=== PATIENT | male | born 1970 | race Caucasian/White ===

== ENCOUNTER 2019-04-18 19:31 | Emergency (ER) | payer SELFPAY ==
[~2019-04-18] VITALS: Ht 175.3 cm; Wt 78.5 kg
[2019-04-18 19:33] VITALS: Ht 175.3 cm; Wt 78.5 kg
--- NOTE | 2019-04-18 21:25 | ERD ---
ER Documentation Chief Complaint Chief Complaint generalized rash x5 days w/ low grade fever HPI Patient is a 48 years old male with no known PMHx presenting to the clinic for diffuse body rash x 5 days ago. Patient reports rash came about suddenly and is pruritic and has been getting worse. Patient went to an urgent care yesterday and was given Cephelexin and Hydroxizine. Patient states that he has taken the medication for 1 day and did not have improvement. Patient admits to pruritus and denies pain. Patient also admits to low grade fever without chills or night sweats. Patient report rash initially started on his forearm and has spread to the rest of the body. ROS All systems reviewed and are negative except as per history of present illness. Medications Home Meds Active Scripts Diphenhydramine Hcl* (Benadryl*) 25 Mg Cap, 25 MG PO Q6H PRN for ITCHING for 7 Days, CAP Prov:CHRISTY GARCIA PA-C 04/18/19 Hydrocortisone* Topical (Hydrocortisone* Topical) 2.5%-28.3 Gm Cream..g., 1 APPLIC TOP BID, #2 TUB Prov:CHRISTY GARCIA PA-C 04/18/19 Allergies Allergies: Coded Allergies: No Known Allergy (Unverified , 04/18/19) PMhx/Soc History of Surgery: No Anesthesia Reaction: No Hx Neurological Disorder: No Hx Respiratory Disorders: No Hx Cardiac Disorders: No Hx Psychiatric Problems: No Hx Miscellaneous Medical Probl: No FmHx Family History: No diabetes, No coronary disease, No other Physical Exam Vitals Vital Signs Date Temp Pulse Resp B/P (MAP) Pulse Ox O2 O2 Flow FiO2 Time Delivery Rate 04/18/19 100.2 99 16 133/76 97 19:33 (95) Physical Exam Const: No acute distress Head: Atraumatic Eyes: Normal Conjunctiva Resp: Clear to auscultation bilaterally Cardio: Regular rate and rhythm, no murmurs Abd: Soft, non tender, non distended. Normal bowel sounds Skin: Multiple Macular rash over bilateral upper & lower extremity, neck, torso. Back: No midline or flank tenderness Ext: No cyanosis, or edema Neur: Awake and alert Psych: Normal Mood and Affect Results 24 hrs Current Medications Medications Dose Sig/George Start Time Status Last (Trade) Ordered Route PRN Stop Time Admin Dose Reason Admin 10 mg ONCE ONCE 04/18/19 DC 04/18/19 Dexamethasone IM 21:30 21:34 (Decadron) 04/18/19 21:31 Procedures/MDM Patient was seen and evaluated for rash. Symptoms most likely represents viral exanthem vs dermatitis. Patient was given Dexamethasone 10mg IM with improvement in symptoms. Patient is stable and ready for discharge. Patient was advised to f/u with PCP for dermatology evaluation. Patient was advised to avoid scratching rash. Departure Diagnosis: Primary Impression: Rash Condition: Stable Patient Instructions: Self-Care for Skin Rashes Referrals: [facility] Additional Instructions: Paciente aconseja volver a Departamento de urgencias inmediatamente para sntomas nuevos o que empeoran . Paciente aconseja posteriores con el PCP en 2-3 patel . Paciente verbaliza la comprehensin y est de acuerdo con el tratamiento y el curso de accin. Si el paciente no tiene ninguna de atencin primaria pueden seguir con [facility] [address] [place] [address] o [facility] + [address] [address] CHRISTY GARCIA PA-C Apr 18, 2019 21:25
[2019-04-18] MEDS ORDERED: DEXAMETHASONE 10 MG/ML 1 ML INJ IM ONE (21:30)
[2019-04-18] MEDS ORDERED: HC30CR25 TOP (21:36)
[2019-04-18] MEDS ORDERED: BEN25 PO (21:37)
[2019-04-18 21:45] VITALS: BP 129/82; PULSE 85; RESP 18
== END 2019-04-18 21:48 | disposition home or self-care (01) ==
LOC: FTE 19:31
DX: R21 Rash and other nonspecific skin eruption (principal)
CPT/HCPCS: 96372; 99284; J1100

== ENCOUNTER 2019-04-21 19:05 | Emergency (ER) | payer SELFPAY ==
[~2019-04-21] VITALS: Ht 172.7 cm; Wt 78.0 kg
[~2019-04-21 19:05] MED LIST: BEN25 PO; HC30CR25 TOP
[2019-04-21 19:11] VITALS: Ht 172.7 cm; Wt 78.0 kg
[2019-04-21] MEDS ORDERED: MED4DP PO (20:26)
[2019-04-21] MEDS ORDERED: FAMO-96 PO ×3 (20:26→21:30)
[2019-04-21] MEDS ORDERED: TRIA15CR55 TOP (20:27)
[2019-04-21] MEDS ORDERED: METHYLPREDNISOLONE 125 MG INJ IM ONE (20:30)
[2019-04-21] MEDS ORDERED: DIPHENHYDRAMINE 25 MG CAP PO ONE (20:30)
[2019-04-21] MEDS ORDERED: FAMOTIDINE 20 MG TAB PO ONE (20:30)
[2019-04-21] MEDS ORDERED: METHYLPREDNISOLONE 125 MG INJ IV ONE (20:30)
--- NOTE | 2019-04-21 20:32 | ERD ---
ER Documentation Chief Complaint Chief Complaint generalize body rash x2 weeks, was here few days ago for same HPI 48-year-old male presents to ED for evaluation of rash x8 days. Patient p resents to ED 3 days previously and was told to have dermatitis was given IM injection Decadron and prescribed Benadryl, hydroxyzine, and hydrocortisone ointment. Patient notes no improvement in symptoms and notes rash is now spread from the abdomen to the back and now the bilateral upper and lower extremities. Patient notes rash is extremely itchy preventing him from sleeping at night. Denies previous episodes of similar rashes, no known medical history, no known allergies. Patient denies shortness of breath, lip swelling, tongue swelling, fevers, chills. ROS All systems reviewed and are negative except as per history of present illness. Medications Home Meds Active Scripts Famotidine* (Pepcid*) 20 Mg Tablet, 40 MG PO BID for 6 Days, #12 TAB Prov:KRYSTEN GREEN PA-C 04/21/19 Triamcinolone Acetonide (Triamcinolone Acetonide) 0.1% - 15 Gm Cream.gm., 1 APPLIC TOP BID, #30 GM 1 Refill Prov:KRYSTEN GREEN PA-C 04/21/19 Methylprednisolone* (Medrol* DOSE PACK) 4 Mg/Dose-Pack Tab.ds.pk, 4 MG PO . DIRECTED, #1 PACKET Prov:KRYSTEN GREEN PA-C 04/21/19 Diphenhydramine Hcl* (Benadryl*) 25 Mg Cap, 25 MG PO Q6H PRN for ITCHING for 7 Days, CAP Prov:CHRISTY GARCIA PA-C 04/18/19 Hydrocortisone* Topical (Hydrocortisone* Topical) 2.5%-28.3 Gm Cream..g., 1 APPLIC TOP BID, #2 TUB Prov:CHRISTY GARCIA PA-C 04/18/19 Discontinued Scripts Famotidine* (Pepcid*) 20 Mg Tablet, 40 MG PO BID for 12 Days, TAB Prov:KRYSTEN GREEN PA-C 04/21/19 Famotidine* (Pepcid*) 20 Mg Tablet, 40 MG PO BID for rash for 6 Days, #10 TAB Prov:KRYSTEN GREEN PA-C 04/21/19 Allergies Allergies: Coded Allergies: No Known Allergy (Unverified , 04/18/19) PMhx/Soc Medical and Surgical Hx: pt denies Medical Hx, pt denies Surgical Hx History of Surgery: No Anesthesia Reaction: No Hx Neurological Disorder: No Hx Respiratory Disorders: No Hx Cardiac Disorders: No Hx Psychiatric Problems: No Hx Miscellaneous Medical Probl: No Hx Alcohol Use: No Hx Substance Use: No Hx Tobacco Use: No Smoking Status: Never smoker Physical Exam Vitals Vital Signs Date Temp Pulse Resp B/P (MAP) Pulse Ox O2 O2 Flow FiO2 Time Delivery Rate 04/21/19 98.0 78 16 120/80 98 Room Air 21:24 (93) 04/21/19 99.2 104 20 140/66 99 19:11 (90) Physical Exam Constitutional: Well developed. Well nourished. No acute distress Head/Eyes: Atraumatic. Normocephalic. PERRL. EOMI. No periorbital edema ENT: Moist mucous membranes. Voice normal. No angioedema, no tongue swelling. Neck: Supple. No lymphadenopathy Cardiovascular: Regular rate and rhythm. No murmurs, rubs, or gallops. Distal pulses intact Respiratory: No respiratory distress. Normal breath sounds. No wheezes, rales, or rhonchi. Speaking full sentences. Abdominal: Soft. Non-tender. No guarding, rebound, or rigidity. Non-distended. Extremities: No edema, Full ROM Skin: Dry. Warm. Diffuse blanching erythematous macular rash to the abdomen back and bilateral upper and lower extremities. No warmth, edema, tenderness to palpation. No discharge. No fasciculations or bullae. Neurological: Alert and oriented X 3. Normal speech Psychiatric: Normal mood. Normal affect Results 24 hrs Current Medications Medications Dose Sig/George Start Time Status Last (Trade) Ordered Route PRN Stop Time Admin Dose Reason Admin 125 mg ONCE ONCE 04/21/19 DC Methylprednis IV 20:30 olone Sodium 04/21/19 20:31 Succinate (Solu-Medrol) Famotidine 40 mg ONCE ONCE 04/21/19 DC 04/21/19 (Pepcid) PO 20:30 20:27 04/21/19 20:31 25 mg ONCE ONCE 04/21/19 DC 04/21/19 Diphenhydrami PO 20:30 20:27 ne HCl 04/21/19 20:31 (Benadryl) 125 mg ONCE ONCE 04/21/19 DC 04/21/19 Methylprednis IM 20:30 20:28 olone Sodium 04/21/19 20:31 Succinate (Solu-Medrol) Procedures/MDM MDM: This is a 48yo male who presents for persistent rash. Visible diffuse, blanchable erythematous macular rash to pt abdomen, back, and bilat UE/LE. Pt given IM solumedrol, famotidine, and benadryl while in ED. Patient's dermatologic symptoms have stabilized while they have been evaluated in the department, with pt endorsing improvement in itching and are appropriate for outpatient work up. No evidence of Micah Ian's syndrome, Kawasaki's, or sepsis. Presentation highly suspicious for mycosis fungoides, and counseled patient regarding progression and management of disorder which will require outpatient follow-up with dermatology. Patient advised to follow-up with dermatology in the next few days. However, this patient does not have insurance and therefore he was referred to community health clinics to obtain referral. At this time he will be discharged home with a prescription for Medrol Dosepak, famotidine, and triamcinolone ointment. Patient is to continue taking the previously prescribed Benadryl and Atarax as needed for control of itching. Strict ED return precautions discussed and patient is to return to the ED if develops fevers, chills, shortness of breath or wheezing. Patient expressed verbal understanding and agreement to treatment plan, all questions addressed and answered. Departure Diagnosis: Primary Impression: Rash Condition: Stable Patient Instructions: Self-Care for Skin Rashes, Methylprednisolone Oral tablet [facility] Usted se hinojosa hecho un examen mdico de control que le indica que no est en didier condicin que requiera tratamiento urgente en el Departamento de Emergencia. Un estudio ms profundo y el tratamiento de bradley condicin pueden esperar sin ningn riesgo hasta que usted sea atendida/o en el consultorio de bradley mdico o didier clnica. Es responsabilidad suya arreglar didier amy para el seguimiento del valerie. MANEJO DE CONDICIONES NO URGENTES EN EL FUTURO 1) Si usted tiene un mdico de atencin primaria: Usted debera llamar a bradley mdico de atencin primaria antes de venir al departamento de emergencia. Despus de las horas de consultorio, bradley doctor o bradley asociado/a est disponible por telfono. El mdico o enfermero de celestine en el servicio telefnico puede asesorarle por philipp medio para atender el problema, o valerie contrario se puede programar didier amy. 2) Si usted no tiene un mdico de atencin primaria: Llame al mdico o clnica de referencia que aparece abajo ephraim las horas de consultorio para hacer didier amy para que le vean. CLINICAS: [facility] [phone] [address] [phone] [address] [facility] [phone] [facility] [phone] [address] [place] [address] [phone] [facility] [phone] KRYSTEN FRENCH PA-C Apr 21, 2019 20:32
[2019-04-21 21:24] VITALS: BP 120/80; PULSE 78; RESP 16
== END 2019-04-21 21:25 | disposition home or self-care (01) ==
LOC: FTE 19:05
DX: R21 Rash and other nonspecific skin eruption (principal)
CPT/HCPCS: 96372; 99284; J2930

== ENCOUNTER 2019-04-27 17:18 | Emergency (ER) | payer MEDICAID ==
[~2019-04-27] VITALS: Ht 162.6 cm; Wt 76.0 kg
[~2019-04-27 17:18] MED LIST changes: +FAMO-96 PO; +MED4DP PO; +TRIA15CR55 TOP
[2019-04-27 17:20] VITALS: Ht 162.6 cm; Wt 76.0 kg
[2019-04-27] MEDS ORDERED: KETOROLAC 60 MG INJ IM STA (18:37)
[2019-04-27] MEDS ORDERED: DEXAMETHASONE 10 MG/ML 1 ML INJ IM ONE (19:00)
[2019-04-27] MEDS ORDERED: traMADol 50 MG TAB PO ONE (19:00)
[2019-04-27] MEDS ORDERED: CYCLOBENZAPRINE 10 MG TAB PO ONE (19:00)
[2019-04-27] MEDS ORDERED: ACET-141 PO (19:48)
[2019-04-27] MEDS ORDERED: TRAM50TA2 PO (19:48)
[2019-04-27] MEDS ORDERED: DIPH25CA6 PO (19:48)
[2019-04-27] MEDS ORDERED: IBUP800T48 PO (19:48)
[2019-04-27] MEDS ORDERED: HC30CR25 TOP (19:50)
[2019-04-27] MEDS ORDERED: HDRP454O TOP (19:50)
[2019-04-27 20:09] VITALS: BP 110/70; PULSE 88; RESP 17
--- NOTE | 2019-04-27 20:47 | ERD ---
ER Documentation Chief Complaint Chief Complaint SEA SHOULDER PAIN X 3 DAYS HPI History of Present Illness: 48-year-old male who denies a past medical history coming in today due to complaint of bilateral shoulder pain that is been present for 3 days. 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 Denies injury or trauma. Patient also has rash to bilateral forearms at the present for 2 weeks in which he has been using Benadryl and Eucerin; reports that rash has decreased in severity and itchiness has decreased. At home pharmacological/nonpharmacological treatment for symptoms: Ibuprofen yesterday Denies social concerns; Denies recent foreign travel ROS All systems reviewed and are negative except as per history of present illness. Medications Home Meds Active Scripts Hydrophilic Base* (Aquaphor*) 454 Gm-Topical Oint, 1 APPLIC TOP BID for HYDRATION, #1 JAR Prov:JOHNNY STATON NP 04/27/19 Hydrocortisone* Topical (Hydrocortisone* Topical) 2.5%-28.3 Gm Cream..g., 1 APPLIC TOP BID for RASH for 7 Days, #2 TUB Prov:JOHNNY STATON NP 04/27/19 Diphenhydramine Hcl* (Diphenhydramine Hcl*) 25 Mg Capsule, 50 MG PO Q6 PRN for ITCHING/RASH for 5 Days, #30 CAP Take every night AT BEDTIME for the next 7 days to help with rash AND itching. May take up to every 6 hours if needed, if medication does not cause intolerable sleepiness. Prov:JOHNNY STATON NP 04/27/19 Tramadol HCl (Tramadol HCl) 50 Mg Tablet, 50 MG PO Q12 PRN for MODERATE-SEVERE PAIN, #10 TAB PAIN LEVEL 6-10. Prov:JOHNNY STATON NP 04/27/19 Acetaminophen* (Acetaminophen*) 500 MG Extra Strength Tablet, 1000 MG PO Q6H PRN for PAIN AND OR ELEVATED TEMP, #30 TAB Prov:JOHNNY STATON NP 04/27/19 Ibuprofen* (Motrin*) 800 Mg Tab, 800 MG PO Q6H PRN for ARTHRITIS/PAIN/INFLAMMATION, #30 TAB Prov:JOHNNY STATON NP 04/27/19 Famotidine* (Pepcid*) 20 Mg Tablet, 40 MG PO BID for 6 Days, #12 TAB Prov:KRYSTEN GREEN PA-C 04/21/19 Triamcinolone Acetonide (Triamcinolone Acetonide) 0.1% - 15 Gm Cream.gm., 1 APPLIC TOP BID, #30 GM 1 Refill Prov:KRYSTEN GREEN PA-C 04/21/19 Methylprednisolone* (Medrol* DOSE PACK) 4 Mg/Dose-Pack Tab.ds.pk, 4 MG PO . DIRECTED, #1 PACKET Prov:KRYSTEN GREEN PA-C 04/21/19 Diphenhydramine Hcl* (Benadryl*) 25 Mg Cap, 25 MG PO Q6H PRN for ITCHING for 7 Days, CAP Prov:CHRISTY GARCIA PA-C 04/18/19 Hydrocortisone* Topical (Hydrocortisone* Topical) 2.5%-28.3 Gm Cream..g., 1 APPLIC TOP BID, #2 TUB Prov:CHRISTY GARCIA PA-C 04/18/19 Discontinued Scripts Famotidine* (Pepcid*) 20 Mg Tablet, 40 MG PO BID for 12 Days, TAB Prov:KRYSTEN GREEN PA-C 04/21/19 Famotidine* (Pepcid*) 20 Mg Tablet, 40 MG PO BID for rash for 6 Days, #10 TAB Prov:KRYSTEN GREEN PA-C 04/21/19 Allergies Allergies: Coded Allergies: No Known Allergy (Unverified , 04/18/19) PMhx/Soc Medical and Surgical Hx: pt denies Medical Hx, pt denies Surgical Hx History of Surgery: No Anesthesia Reaction: No Hx Neurological Disorder: No Hx Respiratory Disorders: No Hx Cardiac Disorders: No Hx Psychiatric Problems: No Hx Miscellaneous Medical Probl: No Hx Alcohol Use: No Hx Substance Use: No Hx Tobacco Use: No Smoking Status: Never smoker FmHx Family History: coronary disease; No diabetes Physical Exam Vitals Vital Signs Date Temp Pulse Resp B/P (MAP) Pulse Ox O2 O2 Flow FiO2 Time Delivery Rate 04/27/19 98.0 88 17 110/70 99 Room Air 20:09 (83) 04/27/19 98.1 99 18 114/78 99 17:20 (90) Physical Exam Const: No acute distress, afebrile Head: Atraumatic Eyes: Normal Conjunctiva ENT: Normal External Ears, Nose and Mouth. Neck: Full range of motion. No meningismus. Resp: Clear to auscultation bilaterally Cardio: Regular rate and rhythm, no murmurs Abd: Soft, non tender, non distended. No guarding, no masses, no rigidity Skin: No petechiae; rash consistent with contact dermatitis noted to bilateral forearms, no warmth, no purulent discharge Back: No midline or flank tenderness Ext: No cyanosis, or edema; full range of motion to upper extremities, no deformity, no warmth, no erythema Neur: Awake and alert x3, speaking in clear sentences, no focal deficits or facial asymmetry Psych: Normal Mood and Affect Results 24 hrs Current Medications Medications Dose Sig/George Start Time Status Last (Trade) Ordered Route PRN Stop Time Admin Dose Reason Admin 10 mg ONCE ONCE 04/27/19 DC 04/27/19 Dexamethasone IM 19:00 18:47 (Decadron) 04/27/19 19:01 10 mg ONCE ONCE 04/27/19 DC 04/27/19 Cyclobenzapri PO 19:00 18:47 ne HCl 04/27/19 19:01 (Flexeril) Ketorolac 60 mg ONCE STAT 04/27/19 DC 04/27/19 Tromethamine IM 18:37 18:47 (Toradol) 04/27/19 18:38 Tramadol 50 mg ONCE ONCE 04/27/19 DC 04/27/19 HCl PO 19:00 18:47 (Ultram) 04/27/19 19:01 Procedures/MDM ED COURSE: ED course includes a thorough examination and history. The patient was stable throughout ED course. I kept the patient and/or family informed of laboratory and diagnostic imaging results throughout the ED course. LABS: None MEDICATIONS GIVEN IN ER: Tramadol, ketorolac, cyclobenzaprine, dexamethasone Patient tolerated medication well with no adverse reactions. Patient reported improvement in pain. DIAGNOSTIC IMAGING: None. Imaging offered, patient declined and reports that if pain persists after trial medication he will return for reevaluation PROCEDURES: None. MEDICAL DECISION MAKING: Low suspicion for life-threatening medical emergency. Low suspicion for orthopedic emergency. Low suspicion for infectious process that requires antibiotics. Otherwise healthy patient presenting with constellation of symptoms likely rep resenting contact dermatitis and arthritis as characterized by history, physical exam findings. Patient reassessment @ 2005: Patient medicated as ordered. Patient with decrease in pain; denies pain at this time after medications. Patient hemodynamically stable. No respiratory distress, otherwise relatively well appearing and nontoxic. Disposition given. Patient educated on diagnoses, prescriptions, follow-up care, return precautions. Strict return precautions given for worsening condition; questions answered discharge. Patient verbalizes understanding of discharge instructions. PRESCRIPTIONS FOR HOME: For arthritis: Ibuprofen, cyclobenzaprine, tramadol, acetaminophen For contact dermatitis: Hydrocortisone, diphenhydramine, Aquaphor DISPOSITION: DISCHARGE At this time, patient is stable for discharge and outpatient management. I have instructed the patient to follow-up with his/her primary care physician in 1-2 days. I have discussed with the patient the possibility of needing to see a specialist for further workup and imaging studies if symptoms persist. I have instructed the patient to promptly return to the ER for any new or worsening symptoms including increased pain, fever, nausea, vomiting, weakness or LOC. The patient and/or family expressed understanding of and agreement with this plan. All questions were answered. Home care instructions were provided. DISCLAIMER: Inadvertent spelling and grammatical errors are likely due to EHR/dictation software use and do not reflect on the overall quality of patient care. Also, please note that the electronic time recorded on this note does not necessarily reflect the actual time of the patient encounter. Departure Diagnosis: Primary Impression: Arthritis, shoulder region Additional Impression: Contact dermatitis Condition: Stable Patient Instructions: Osteoarthritis: Managing Pain, Arthralgia, Contact Dermatitis Referrals: [facility] YOU HAVE RECEIVED A MEDICAL SCREENING EXAM AND THE RESULTS INDICATE THAT YOU DO NOT HAVE A CONDITION THAT REQUIRES URGENT TREATMENT IN THE EMERGENCY DEPARTMENT. FURTHER EVALUATION AND TREATMENT OF YOUR CONDITION CAN WAIT UNTIL YOU ARE SEEN IN YOUR DOCTORS OFFICE WITHIN THE NEXT 1-2 DAYS. IT IS YOUR RESPONSIBILITY TO MAKE AN APPOINTMENT FOR FOLOW-UP CARE. IF YOU HAVE A PRIMARY DOCTOR --you should call your primary doctor and schedule an appointment IF YOU DO NOT HAVE A PRIMARY DOCTOR YOU CAN CALL OUR PHYSICIAN REFERRAL HOTLINE AT IF YOU CAN NOT AFFORD TO SEE A PHYSICIAN YOU CAN CHOSE FROM THE FOLLOWING [facility] [address] [facility]. [facility] [address] [facility] [address] [facility] [address] [facility] [address] [facility]. [facility]. [address] [facility]. [facility] YOU HAVE RECEIVED A MEDICAL SCREENING EXAM AND THE RESULTS INDICATE THAT YOU DO NOT HAVE A CONDITION THAT REQUIRES URGENT TREATMENT IN THE EMERGENCY DEPARTMENT. FURTHER EVALUATION AND TREATMENT OF YOUR CONDITION CAN WAIT UNTIL YOU ARE SEEN IN YOUR DOCTORS OFFICE WITHIN THE NEXT 1-2 DAYS. IT IS YOUR RESPONSIBILITY TO MAKE AN APPOINTMENT FOR FOLOW-UP CARE. IF YOU HAVE A PRIMARY DOCTOR --you should call your primary doctor and schedule and appointment IF YOU DO NOT HAVE A PRIMARY DOCTOR YOU CAN CALL OUR PHYSICIAN REFERRAL HOTLINE AT . IF YOU CAN NOT AFFORD TO SEE A PHYSICIAN YOU CAN CHOSE FROM THE FOLLOWING [facility] INSTITUTIONS: [facility] [address] [place] [address] [facility] [address] [place] [address] [facility] [address] [place] [address] Additional Instructions: Thank you very much for allowing us to participate in your care. Your health and safety is our top priority at [facility]. It is important to read all discharge instructions and education provided in your discharge packet. Call your primary care doctor TOMORROW for an appointment during the next 2-4 days and bring all the information and medications prescribed. Have prescriptions filled and follow precisely the directions on the label. -Acetaminophen as a medication for pain and/or fever. Take this medication as needed for mild to moderate pain. This medication will not cause drowsiness. -Ibuprofen is a medication that will help with pain/inflammation. At the dosage of 600 to 800 mg, this will help with inflammation/swelling. Take this medication as prescribed. -Diphenhydramine is an antihistamine that MAY cause drowsiness; take this medication every day for allergy-like symptoms/cough/runny nose/rash/itching. -Tramadol is an opiate pain medication; take this medication as needed for moderate to severe pain. No operating of heavy machinery while taking this medication. It may cause drowsiness. -Aquafor creates a barrier between skin and the environment, working to seal moisture in and inhibit germs from entering cuts. --Hydrocortisone is a steroid, which decreases inflammation; uses medication as prescribed to decrease inflammation associated with your rash. If the symptoms get worse and your provider is unavailable, return to the Emergency Department immediately. JOHNNY STATON NP Apr 27, 2019 20:47
== END 2019-04-27 20:09 | disposition home or self-care (01) ==
LOC: FTE 17:18
DX: M19.011 Primary osteoarthritis, right shoulder (principal); L25.9 Unspecified contact dermatitis, unspecified cause
CPT/HCPCS: 96372; J1100; J1885; Z7502; Z7610